=== PATIENT | male | born 1960 | race Caucasian/White ===

== ENCOUNTER 2022-06-21 06:44 | Observation (INO) | payer OTHER ==
[~2022-06-21] VITALS: Ht 180.3 cm; Wt 111.4 kg
[2022-06-21] VITALS (11 sets, daily range): BP systolic 108–139; BP diastolic 62–84
[2022-06-21] MEDS ORDERED: GLYBURID MCR1.5 MG PO (07:30)
[2022-06-21] MEDS ORDERED: NORVASC5 M1 PO (07:31)
[2022-06-21] MEDS ORDERED: SPIRONOLACTONE25 MG PO (07:31)
[2022-06-21] MEDS ORDERED: LISINOPRIL10 MG PO (07:33)
[2022-06-21] MEDS ORDERED: SIMVASTATIN10 MG PO (07:33)
[2022-06-21 07:34] LABS: BASO% 0.2 % (0-3); EOS% 1.4 % (0-8); HEMATOCRIT 39.7 % (39.0-50.0); HEMOGLOBIN 13.4 g/dl (14.0-18.0); IMMATURE GRANULOCYTES 0.6 % (0.0-5.0); LYMPH% 27.6 % (15-41); MEAN CELL VOLUME 89.8 fL CALC (80.0-100.0); MEAN CORPUSCULAR HGB 30.3 pG CALC (26.0-32.0); MEAN CORPUSCULAR HGB CONC 33.8 g/dL CAL (32.0-36.0); MONO% 7.2 % (2-13); NEUT# 5.04 thou/uL (1.82-7.42); RED BLOOD COUNT 4.42 mill/uL (4.70-6.10); RED CELL DISTRI WIDTH 12.8 % (11.5-15.5)
[2022-06-21] MEDS ORDERED: METFORMIN500 M2 PO (07:34)
[2022-06-21] MEDS ORDERED: OMEPRAZOLE20 MG PO (07:34)
[2022-06-21 07:44] LABS: ALBUMIN 4.8 g/dL (3.2-5.0); ALKALINE PHOSPHATASE 60 u/l (38-126); ANION GAP 14 (6-22 (CALC)); BILIRUBIN, TOTAL 0.6 mg/dL (0.2-1.3); BUN 19 mg/dL (8-23); BUN/CREATININE RATIO 21 (12-20 (CALC)); CARBON DIOXIDE 27 mmol/l (22-30); CHLORIDE 102 mmol/l (95-108); CREATININE 0.9 mg/dL (0.7-1.3); GFR FOR AFR.AMER. > 60 ML/MIN (>=60 (CALC)); GFR OTHER RACES > 60 ML/MIN (>=60 (CALC)); POTASSIUM 4.6 mmol/l (3.5-5.1); SGOT/AST 36 u/l (19-48); SODIUM 138 mmol/l (137-146); TOTAL PROTEIN 7.8 g/dL (6.3-8.2)
[2022-06-22] VITALS: BP 108/65
[2022-06-22 05:38] LABS: BASO% 0.3 % (0-3); HEMATOCRIT 38.2 % (39.0-50.0); IMMATURE GRANULOCYTES 0.3 % (0.0-5.0); MONO% 7.3 % (2-13); NEUT# 3.77 thou/uL (1.82-7.42); NEUT% 63.1 % (42-76); RED BLOOD COUNT 4.2 mill/uL (4.70-6.10)
[2022-06-22 05:59] LABS: ALBUMIN 4.6 g/dL (3.2-5.0); ALKALINE PHOSPHATASE 52 u/l (38-126); BILIRUBIN, TOTAL 0.5 mg/dL (0.2-1.3); BUN 20 mg/dL (8-23); BUN/CREATININE RATIO 23 (12-20 (CALC)); CALCULATED LDLCHOLESTEROL 135 mg/dL (62-129 (CALC)); CHLORIDE 104 mmol/l (95-108); CHOLESTEROL HDL RATIO 5.7 (<4.4 (CALC)); CREATININE 0.9 mg/dL (0.7-1.3); GFR FOR AFR.AMER. > 60 ML/MIN (>=60 (CALC)); GFR OTHER RACES > 60 ML/MIN (>=60 (CALC)); HDL CHOLESTEROL 44 mg/dL (39.0-59.0); POTASSIUM 4.8 mmol/l (3.5-5.1); SGOT/AST 32 u/l (19-48); SODIUM 136 mmol/l (137-146); TOTAL CHOLESTEROL 252 mg/dl (0-199); TOTAL PROTEIN 7.5 g/dL (6.3-8.2); TOTAL TRIGLYCERIDES 363 mg/dl (0-149); VLDL CHOLESTROL 73 mg/dl (4-45 (CALC))
[2022-06-22 06:00] LABS: ANION GAP 16 (6-22 (CALC)); CARBON DIOXIDE 21 mmol/l (22-30)
[2022-06-22 06:51] VITALS: BP 141/77
[2022-06-22 09:12] VITALS: BP 129/77
[2022-06-22 11:12] VITALS: BP 125/77
== END 2022-06-22 12:27 | disposition home or self-care (01) | DRG 313 ==
LOC: ED 06:44 → ED-I 08:00 → ED 08:18 → MS2 08:19
PROVIDERS: Family Medicine; ADMIT Internal Medicine; ATTEND Internal Medicine
DX: R07.9 Chest pain, unspecified (principal); R01.1 Cardiac murmur, unspecified; I10 Essential (primary) hypertension; E11.9 Type 2 diabetes mellitus without complications; E66.9 Obesity, unspecified; E78.5 Hyperlipidemia, unspecified; Z79.84 Long term (current) use of oral hypoglycemic drugs
CPT/HCPCS: G0378; J1650